=== PATIENT | male | born 1975 | race Caucasian/White ===

== ENCOUNTER 2023-09-18 21:28 | Observation (INO) ==
--- NOTE | 2023-09-18 21:45 | DR.HI ---
HPI Time Seen Time Seen by Provider: 09/18/23 21:45 HPI Comment HPI Comment: 47 y/o fell flat on his back hitting his head when strap he was tying down on a bouncy house broke and he fell; he does not feel like he passed out but cannot remember exactly what happened or how long ago it happened but hi s says it was a few hours ago; he did not lose consciousness but was dazed; he initially had no c/o but then started showing memory loss; he's asked what happened numerous times and continues to ask although she's told him multiple times; he now has a bad headache but denies dizziness, nausea and vomiting PMH PMH Past Surgical History: Yes Surgical History: Appendectomy and Ortho Surgery Family History Family Medical History: Diabetes Mellitus and Hypertension Social History Do you use any recreational Drugs:: No ROS Review of Systems Constitutional: No Symptoms Reported Eyes: No Symptoms Reported ENTM: No Symptoms Reported Respiratoy: No Symptoms Reported Cardiovascular: No Symptoms Reported Gastrointestinal/Abdominal: No Symptoms Reported Genitourinary: No Symptoms Reported Neurological: See HPI Musculoskeletal: No Symptoms Reported Integumentary: No Symptoms Reported Hematologic/Lymphatic: No Symptoms Reported Endocrine: No Symptoms Reported Psychiatric: No Symptoms Reported PE Vital Signs Vitals: Vital Signs Temperature 97.7 F Pulse Rate 101 Respiratory Rate 18 Blood Pressure 135/86 O2 Sat by Pulse Oximetry 98 General Limitations: No Limitations General Appearance: Alert and In No Apparent Distress Head Head Exam: Normal Inspection Eyes Eye exam: Normal Appearance ENT ENT Exam: Normal Exam Nose Exam: Normal Nose Exam Mouth Exam: Normal Inspection Neck Neck Exam: Normal Inspection Respiratory Respiratory Exam: Normal Lung Sounds Bilat Respiratory Exam: Bilateral: Clear to Auscultation Cardiovascular Cardiovascular Exam: Regular Rate and Normal Rhythm Abdominal Exam Abdominal Exam: Normal Inspection, Normal Bowel Sounds and Soft Extremities Extremities Exam: Normal Inspection and Full ROM Back Back Exam: Normal Inspection and Full ROM Neurologic Neurological Exam: Alert, Oriented X3 and Other (speech clear, moves all extremities) Psychiatric Psychiatric Exam: Flat Affect and Other (confused, asks why's here at least four times in ten minutes; repeatedly asks what happened but is able to give and phone #, rubs head and looks around several times) Skin Skin Exam: Warm, Dry, Intact and Normal Color DIFFERENTIAL DIAGNOSIS Additional Information Obtained Additional Information Obtained: Family COURSE Consultation Call Returned: 23:16 (Evin Kuhn accepts admission.) [facility] Labs Reviewed Laboratory Results Reviewed?: Yes 09/18/23 23:21 09/18/23 23:21 Other Results Comments: Pt remains very confused and I don't think he's stable for discharge. He's agreeable to admission and will be observed overnight. XRAY XRAY Interpreted by: Radiologist X-ray Results: ct brain: No evidence of acute intracranial abnormality. ct c-spine: Degenerative and postsurgical change without acute abnormality. Opioid Opioid Risk Tool Age (Azeem box if 16-45): No History of Preadolescent Sexual Abuse: No Total: 0 Total Score Risk Category: Low Risk Copyright: Hill SHULTZ predicting aberrant behaviors Discharge Plan Diagnosis Discharge Problem: Concussion Qualifiers: Encounter type: initial encounter Loss of consciousness presence/duration: without LOC Qualified Code(s): S06.0X0A - Concussion without loss of consciousness, initial encounter Discharge Plan Patient Disposition: ADMITTED INPATIENT Condition: Stable
[2023-09-18 21:58] VITALS: BMI 30.2
--- NOTE | 2023-09-18 22:12 | CT ---
EXAM:BRAIN W/O CONHISTORY:headache s/p fall; pt fell back froming a standing postion hit his head on the ground no LOC but pt is c/o headache and neck pain with some short term memory loss ; GERD SX: APPY, NECKCOMPARISON:08/10/2023TECHNIQUE:Multi ple axial images of the head were performed from the skullbase to the vertex using standard departmental protocol. Sagittal and coronal reformatted images were performed. Dose reduction techniques including Automated Exposure Control (AEC) and adjustment of mA and kV were utilized.FINDINGS:The sulci, cisterns and ventricles are age appropriate. There is no evidence of acute territorial infarction, hemorrhage, mass, mass effect or midline shift. There are no abnormal intra-axial or extra-axial fluid collections. The visualized paranasal sinuses and mastoid air cells are predominantly clear.IMPRESSION:No evidence of acute intracranial abnormality.THIS IS AN ELECTRONICALLY VERIFIED FINAL REPORT09/18/2023 10:08 PM - Electronically signed by Ayaz Aguilera MD
--- NOTE | 2023-09-18 22:46 | CT ---
EXAM: CERVICAL SPINE W/O CON HISTORY: pt fell back froming a standing postion hit his head on the ground no LOC but pt is c/o headache and neck pain with some short term memory loss ; GERD SX: APPY, NECK COMPARISON: None. TECHNIQUE: Nonenhanced spiral CT imaging was performed through the cervical spine and axial, coronal, and sagitt al CT images were generated. FINDINGS: The alignment in the cervical spine is anatomic. There has been a prior anterior fusion and discecto my from C5-C7. There is mild atlantoaxial degeneration. There is no spinal stenosis. There is no f racture of the posterior elements. IMPRESSION: Degenerative and postsurgical change without acute abnormality. THIS IS AN ELECTRONICALLY VERIFIED FINAL REPORT 09/18/2023 10:42 PM - Electronically signed by Marques Smith MD
[2023-09-18] MEDS ORDERED: ZOFRAN INJ 4 MG VIAL IVP PRN (23:09)
[2023-09-18 23:33] LABS: BASOPHILS % (AUTO) 0.6 % (0.2-1.0); EOSINOPHILS # (AUTO) 0.2 x10^3/uL (0.0-0.2); EOSINOPHILS % (AUTO) 2.3 % (0.9-2.9); HEMATOCRIT 45.7 % (42.0-54.0); HEMOGLOBIN 15.4 g/dL (13.5-18.0); LYMPHOCYTES # (AUTO) 1.5 X10^3/uL (1.3-2.9); LYMPHOCYTES % (AUTO) 20.3 % (21.0-51.0); MEAN CORPUSCULAR HEMOGLOBIN 30.4 pg (27.0-34.0); MEAN CORPUSCULAR HGB CONC 33.8 g/dL (33.0-35.0); MEAN CORPUSCULAR VOLUME 90.2 fL (80.0-100.0); MONOCYTES # (AUTO) 0.5 x10^3/uL (0.3-0.8); MONOCYTES % (AUTO) 7.2 % (0.0-13.0); NEUTROPHILS # (AUTO) 5.3 x10^3/uL (2.2-4.8); NEUTROPHILS % (AUTO) 69.6 % (42.0-75.0); PLATELET COUNT 236 X10^3/uL (150.0-450.0); RED BLOOD COUNT 5.07 X10^6/uL (4.7-6.0); RED CELL DISTRIBUTION WIDTH 13.1 % (11.6-16.5); WHITE BLOOD COUNT 7.6 X10^3/uL (3.6-10.0)
[2023-09-18 23:45] LABS: ALANINE AMINOTRANSFERASE 38 Units/L (12-78); ALBUMIN 4.1 g/dL (3.4-5.0); ALKALINE PHOSPHATASE 61 Units/L (46-116); ASPARTATE AMINO TRANSFERASE 21 Units/L (15-37); BLOOD UREA NITROGEN 7 mg/dL (7-18); CALCIUM 8.9 mg/dL (8.5-10.1); CHLORIDE 102 mmol/L (98-107); CREATININE 0.89 mg/dL (0.70-1.30); GLUCOSE 94 mg/dL (65-99); POTASSIUM 3.7 mmol/L (3.5-5.1); SODIUM 140 mmol/L (136-145); TOTAL PROTEIN 7.7 g/dL (6.4-8.2); eGFR NON BLACK RACES > 60 (>60)
[2023-09-18] MEDS ORDERED: NS 1,000 ML IV 1,000 ML IV SCH (23:45)
[2023-09-18] MEDS ORDERED: CONSULT PHARMACY - POTASSIUM & MAGNESIUM XX SCH (23:45)
[2023-09-19] MEDS: NS 1,000 ML IV 1,000 ML IV SCH (00:09)
[2023-09-19] MEDS: TYLENOL 500 MG TAB EXTRA STRENGTH PO PRN (00:16)
[2023-09-19 06:15] LABS: BASOPHILS # (AUTO) 0.1 X10^3/uL (0.0-0.1); BASOPHILS % (AUTO) 0.8 % (0.2-1.0); EOSINOPHILS # (AUTO) 0.3 x10^3/uL (0.0-0.2); EOSINOPHILS % (AUTO) 3.6 % (0.9-2.9); HEMATOCRIT 45.4 % (42.0-54.0); HEMOGLOBIN 15.4 g/dL (13.5-18.0); LYMPHOCYTES # (AUTO) 1.8 X10^3/uL (1.3-2.9); LYMPHOCYTES % (AUTO) 25.8 % (21.0-51.0); MEAN CORPUSCULAR HEMOGLOBIN 30.9 pg (27.0-34.0); MEAN CORPUSCULAR HGB CONC 33.9 g/dL (33.0-35.0); MEAN CORPUSCULAR VOLUME 90.9 fL (80.0-100.0); MONOCYTES # (AUTO) 0.6 x10^3/uL (0.3-0.8); MONOCYTES % (AUTO) 8.5 % (0.0-13.0); NEUTROPHILS # (AUTO) 4.3 x10^3/uL (2.2-4.8); NEUTROPHILS % (AUTO) 61.3 % (42.0-75.0); PLATELET COUNT 225 X10^3/uL (150.0-450.0); RED BLOOD COUNT 4.99 X10^6/uL (4.7-6.0); RED CELL DISTRIBUTION WIDTH 13.2 % (11.6-16.5)
[2023-09-19] MEDS: K-DUR TAB 20 MEQ PO SCH (09:44)
[2023-09-19] MEDS: ALPRAZOLAM ODT PO ONE (09:51)
[2023-09-19] MEDS: ZyrTEC TAB 10 MG PO SCH (11:00)
[2023-09-19 11:01] VITALS: RESP 17
[2023-09-19] MEDS: ATIVAN INJ 2 MG VIAL IVP ONE (15:00)
[2023-09-19 15:39] VITALS: BP 151/88; PULSE 80; TEMP 97.9; O2SAT 99
--- NOTE | 2023-09-19 17:25 | MRI ---
EXAM:BRAIN W/O CONHISTORY:PATIENT FELL YESTERDAY AND HIT THE BACK OF HIS HEAD/ HAVING TROUBLE WITH HIS MEMORY;COMPARISON:CT 09/18/2023TECHNIQUE:Multi planar MR images of the brain using multiple imaging sequences.FINDINGS:Diffusion-weighted axial images show no evidence of acute CVA or acute demyelination. No abnormal intra-axial or extra-axial masses, mass effect, or midline shift. Ventricles normal size and shape. Normal flow void within the cavernous portions of the internal carotid arteries bilaterally and basilar artery.The sella and suprasellar regions, orbital globes and retro-orbital structures, paranasal sinuses, cervicomedullary junction appear intact.IMPRESSION:Normal noncontrast MRI of the brain.THIS IS AN ELECTRONICALLY VERIFIED FINAL REPORT09/19/2023 5:22 PM - Electronically signed by Abigail Akins MD
[2023-09-19] MEDS ORDERED: PERCOCET TAB 5/325 MG PO ONE (17:44)
== END 2023-09-19 18:45 | disposition home or self-care (01) ==
LOC: ER 21:28 → MED/SURG 21:28
PROVIDERS: ADMIT Family Medicine; ATTEND Internal Medicine
DX: R51.9 Headache, unspecified; Y92.9 Unspecified place or not applicable; R41.3 Other amnesia; S09.8XXA Other specified injuries of head, initial encounter; M54.2 Cervicalgia; W18.39XA Other fall on same level, initial encounter; S06.0X0A Concussion without loss of consciousness, initial encounter; R41.82 Altered mental status, unspecified; K21.9 Gastro-esophageal reflux disease without esophagitis